=== PATIENT | female | born 1955 | race Caucasian/White ===

== ENCOUNTER 2021-06-19 23:37 | Inpatient (IN) | payer OTHER ==
[~2021-06-19] VITALS: Ht 167.6 cm; Wt 130.0 kg
[2021-06-20 01:08] LABS: BILIRUBIN 1+ mg/dL (NEGATIVE); BLOOD 2+ Ery/uL (NEGATIVE); COLOR YELLOW (YELLOW); GLUCOSE (U) NORMAL (NORMAL); LEUKOCYTES NEGATIVE Leu/uL (NEGATIVE); NITRITE NEGATIVE (NEGATIVE); PROTEIN 3+ mg/dL (NEGATIVE); SPECIFIC GRAVITY >=1.030 (1.001-1.030); UROBILINOGEN >=8.0 mg/dL (0.2-1.0)
[2021-06-20 01:25] LABS: CLARITY HAZY (CLEAR)
[2021-06-20 01:32] LABS: BACTERIA 1+; GRANULAR CASTS TRACE; RENAL EPITHELIAL CELLS RARE; SQUAMOUS EPITHELIAL CELLS RARE; URINARY WBC RARE
[2021-06-20 03:11] LABS: INR 1.21 (0.9-1.2); PROTHROMBIN TIME 14.7 SECONDS (11.8-13.4)
[2021-06-20 03:26] LABS: LACTIC ACID 1.1 mmol/L (0.4-1.9)
[2021-06-20 03:29] LABS: ALBUMIN 2.3 g/dL (3.4-5.0); BILIRUBIN - TOTAL 0.7 mg/dL (0.2-1.0); BUN/CREAT RATIO (CALC) 31.6 RATIO; CREATININE 0.95 mg/dL (0.51-0.95); GLOBULIN (CALCULATION) 3.5 g/dL; MAGNESIUM 2.3 mg/dL (1.8-2.4); POTASSIUM 4.4 mmol/L (3.5-5.1); TOTAL PROTEIN 5.8 g/dL (6.4-8.2)
[2021-06-20 03:34] LABS: BASOPHIL 0.2 % (0-2); EOSINOPHIL 0 % (0-7); HCT 38.5 % (37.0-47.0); LYMPHOCYTE 3.2 % (15-48); MCH 29.1 pg (25.0-31.0); MCHC 31.2 g/dL (32.0-36.0); MCV 93.2 fL (78.0-100.0); MONOCYTE 5.4 % (0-12); MPV 9.8 fL (6.0-9.5); NEUTROPHIL 89.2 % (41-80); NRBC 0; PLT 160 K/uL (150-400); RBC 4.13 M/uL (4.20-5.40); RDW 14.8 % (11.5-14.0); WBC 9.3 K/uL (4.0-10.5)
[2021-06-20] MEDS ORDERED: TRELEGY ELLIPT1 EAC1 INH (12:51)
[2021-06-20] MEDS ORDERED: XANAX0.5 MG PO (12:52)
[2021-06-20] MEDS ORDERED: HYDROCODON-ACE1 EAC6 PO (12:53)
[2021-06-20] MEDS ORDERED: LIPITOR40 MG PO (12:53)
[2021-06-20] MEDS ORDERED: ZOLOFT100 MG PO (12:54)
[2021-06-20] MEDS ORDERED: BUMEX1 MG PO (12:54)
[2021-06-20] MEDS ORDERED: DUONEB 2.5-0.5M1 AMP INH (12:54)
[2021-06-20] MEDS ORDERED: VITAMIN D21250 MCG PO (12:55)
[2021-06-20] MEDS ORDERED: K-DUR20 MEQ PO (12:55)
[2021-06-20] MEDS ORDERED: FENOFIBRATE134 MG PO (12:57)
[2021-06-20 17:52] LABS: BASOPHIL 0.2 % (0-2); EOSINOPHIL 0 % (0-7); HCT 36.7 % (37.0-47.0); HGB 11.6 g/dl (12.5-16.0); LYMPHOCYTE 8.5 % (15-48); MCH 29.2 pg (25.0-31.0); MCHC 31.6 g/dL (32.0-36.0); MCV 92.4 fL (78.0-100.0); MONOCYTE 6.8 % (0-12); MPV 9.7 fL (6.0-9.5); NEUTROPHIL 83.6 % (41-80); NRBC 0; PLT 153 K/uL (150-400); RBC 3.97 M/uL (4.20-5.40); RDW 14.4 % (11.5-14.0); WBC 6.5 K/uL (4.0-10.5)
[2021-06-20 17:58] LABS: INR 1.21 (0.9-1.2); PROTHROMBIN TIME 14.7 SECONDS (11.8-13.4); PTT 32.1 SECONDS (24.4-34.7)
[2021-06-20 18:34] LABS: ALBUMIN 2.1 g/dL (3.4-5.0); BILIRUBIN - TOTAL 0.4 mg/dL (0.2-1.0); BUN/CREAT RATIO (CALC) 32.7 RATIO; CREATININE 0.98 mg/dL (0.51-0.95); GLOBULIN (CALCULATION) 3.4 g/dL; PHOSPHORUS 2.4 mg/dL (2.6-4.7); POTASSIUM 4.2 mmol/L (3.5-5.1); TOTAL PROTEIN 5.5 g/dL (6.4-8.2)
[2021-06-21 04:00] LABS: BASOPHIL 0.3 % (0-2); EOSINOPHIL 0.1 % (0-7); HCT 37.6 % (37.0-47.0); HGB 11.7 g/dl (12.5-16.0); MCHC 31.1 g/dL (32.0-36.0); MCV 93.3 fL (78.0-100.0); MONOCYTE 5.7 % (0-12); MPV 9.4 fL (6.0-9.5); NEUTROPHIL 87.1 % (41-80); PLT 156 K/uL (150-400); RBC 4.03 M/uL (4.20-5.40); RDW 14.4 % (11.5-14.0); WBC 7.7 K/uL (4.0-10.5)
[2021-06-21 04:21] LABS: BAND 2 % (0-10); LYMPHOCYTE(M) 9 % (15-48); METAMYELOCYTE 1; MONOCYTE(M) 5 % (0-12); NEUTROPHILS(M) 83 % (41-80); TOTAL CELL COUNT 100
[2021-06-21 04:22] LABS: NRBC 0; PLATELET ESTIMATE NORMAL; PLATELET MORPHOLOGY NORMAL; POLYCHROMASIA SLIGHT; PRO-BNP 432 pg/mL (<125)
[2021-06-21 04:42] LABS: ALBUMIN 2.1 g/dL (3.4-5.0); BILIRUBIN - TOTAL 0.6 mg/dL (0.2-1.0); BUN/CREAT RATIO (CALC) 29.4 RATIO; CREATININE 1.02 mg/dL (0.51-0.95); GLOBULIN (CALCULATION) 3.4 g/dL; MAGNESIUM 2.1 mg/dL (1.8-2.4); PHOSPHORUS 2.1 mg/dL (2.6-4.7); POTASSIUM 4.2 mmol/L (3.5-5.1); TOTAL PROTEIN 5.5 g/dL (6.4-8.2)
--- NOTE | 2021-06-21 15:16 | NUR ---
06/21/21 Patient is currently intubated. She has home 02. Will monitor for discharge planning needs.
[2021-06-22 05:31] LABS: ALBUMIN 1.9 g/dL (3.4-5.0); BILIRUBIN - TOTAL 0.5 mg/dL (0.2-1.0); BUN/CREAT RATIO (CALC) 33.7 RATIO; CREATININE 0.98 mg/dL (0.51-0.95); GLOBULIN (CALCULATION) 3.2 g/dL; MAGNESIUM 2.2 mg/dL (1.8-2.4); PHOSPHORUS 4.3 mg/dL (2.6-4.7); POTASSIUM 4.5 mmol/L (3.5-5.1); TOTAL PROTEIN 5.1 g/dL (6.4-8.2)
[2021-06-22 05:32] LABS: BASOPHIL 0.2 % (0-2); EOSINOPHIL 0.2 % (0-7); HCT 35.9 % (37.0-47.0); LYMPHOCYTE 11.6 % (15-48); MCHC 30.6 g/dL (32.0-36.0); MCV 94.7 fL (78.0-100.0); MONOCYTE 4.1 % (0-12); MPV 10.1 fL (6.0-9.5); NEUTROPHIL 82.1 % (41-80); NRBC 0.3; PLT 183 K/uL (150-400); RBC 3.79 M/uL (4.20-5.40); RDW 14.1 % (11.5-14.0)
[2021-06-23 03:52] LABS: BASOPHIL 0.4 % (0-2); EOSINOPHIL 0.1 % (0-7); HCT 40.3 % (37.0-47.0); HGB 12.1 g/dl (12.5-16.0); MCH 28.8 pg (25.0-31.0); MONOCYTE 5.3 % (0-12); MPV 9.6 fL (6.0-9.5); NEUTROPHIL 80.2 % (41-80); NRBC 0; PLT 219 K/uL (150-400); RDW 14.3 % (11.5-14.0); WBC 8.1 K/uL (4.0-10.5)
[2021-06-23 04:20] LABS: ALBUMIN 2.2 g/dL (3.4-5.0); BILIRUBIN - TOTAL 0.3 mg/dL (0.2-1.0); CREATININE 0.94 mg/dL (0.51-0.95); GLOBULIN (CALCULATION) 2.9 g/dL; MAGNESIUM 2.3 mg/dL (1.8-2.4); PHOSPHORUS 4.1 mg/dL (2.6-4.7); POTASSIUM 4.3 mmol/L (3.5-5.1); TOTAL PROTEIN 5.1 g/dL (6.4-8.2)
--- NOTE | 2021-06-23 06:17 | NUR ---
0600 PT RECEIVED BATH AND REPOSITIONING. PT IS AWAKE AND ALERT AT THIS TIME. PT TOLD RN SHE WANTED TO TURN SLIGHTLY TO HER LEFT. RN HELPED PT. PT SUDDENLY TRIED TO SIT UP AND WAS MOTIONING TOWARD HER ET TUBE. PT SUDDENLY STARTED TRYING TO GRAB A HOLD OF IT AND PULL IT OUT. RN WAS ABLE TO PREVENT THIS FROM HAPPENING. RT CAME IN ROOM TO ASSIST AND SENIOR NET DEVELOPER ARCHITECT WAS AT BS AND ORDERED A PUSH OF 5 MG VERSED. WE WERE ABLE TO SEDATE PT ENOUGHT TO PUT IN RESTRAINTS AND INTERVENE WITH HER RESPIRATORY DISTRESS. ER,RN
--- NOTE | 2021-06-23 06:36 | NUR ---
PATIENT BECAME EXTREMELY AGITATED ON VENT, RN WAS AT BEDSIDE. PATIENT UNRESTRAINED TRYING TO PULL OUT ET TUBE. RT/RN TRYING TO CALM PATIENT SIMON CANDELARIO APRN CALLED. PATIENT BITING ON TUBE, NOT VENTILATING. PATIENT COUGHING UP THICK BOWDEN/BROWN SPUTUM. PATIENT WAS GIVEN SEDATION. PATIENT WAS TAKEN OFF VENT AND BAGGED, SMALL BOWDEN PLUG SUCTIONED. PAIENT CALMED DOWN. TUBE STILL IN APPARENT GOOD POSITION. AM ABG THAT WAS ORDERED OBTAINED WHEN PATIENT WAS SEDATED AND RELAXED. RESULTS SHOWN TO SIMON CANDELARIO APRN
--- NOTE | 2021-06-23 11:05 | NUR ---
2977 KARL MIN, PT GRAND-DAUGHTER GIVEN UPDATE ON PT CONDITION
--- NOTE | 2021-06-23 11:06 | NUR ---
899 HERNANDEZ PT DAUGHTER CALLED GIVEN UPDATE ON PT CONDITION [id number] HERNANDEZ CALLED TO SPEAK WITH PT. PHONE PLACE TO PT EAR. REFUSED ZOOM CALL AT THIS TIME
[2021-06-24 03:37] LABS: BASOPHIL 0.3 % (0-2); EOSINOPHIL 0 % (0-7); HCT 38.8 % (37.0-47.0); HGB 11.6 g/dl (12.5-16.0); LYMPHOCYTE 9.4 % (15-48); MCH 28.6 pg (25.0-31.0); MCHC 29.9 g/dL (32.0-36.0); MCV 95.8 fL (78.0-100.0); MONOCYTE 3.9 % (0-12); MPV 9.9 fL (6.0-9.5); NEUTROPHIL 83.5 % (41-80); NRBC 0; PLT 210 K/uL (150-400); RBC 4.05 M/uL (4.20-5.40); RDW 14.3 % (11.5-14.0); WBC 7.9 K/uL (4.0-10.5)
[2021-06-24 03:56] LABS: BILIRUBIN - TOTAL 0.4 mg/dL (0.2-1.0); BUN/CREAT RATIO (CALC) 34.4 RATIO; CREATININE 0.9 mg/dL (0.51-0.95); GLOBULIN (CALCULATION) 3.3 g/dL; POTASSIUM 4.7 mmol/L (3.5-5.1); TOTAL PROTEIN 5.3 g/dL (6.4-8.2)
--- NOTE | 2021-06-24 14:15 | NUR ---
PATIENT PLACED ON CPAP TRIAL, DIPRIVAN OFF FENTANYL TURNED DOWN TO 75 MCG. PATIENT EXTUBATED TO VENTI MASK ENDED UP ON 50% CHANGED TO OXIFLOW AT 10 LITERS THEN TO 100% NON REBREATHER. SUCTIONED OUT AND COUGHED UP LARGE AMOUNT OF SECRETIONS WILL CONTINUE TO MONITOR
[2021-06-25 03:48] LABS: BASOPHIL 0.2 % (0-2); EOSINOPHIL 0 % (0-7); HCT 39.7 % (37.0-47.0); HGB 12.2 g/dl (12.5-16.0); LYMPHOCYTE 6.7 % (15-48); MCH 29.2 pg (25.0-31.0); MCHC 30.7 g/dL (32.0-36.0); MONOCYTE 4.4 % (0-12); MPV 9.8 fL (6.0-9.5); NEUTROPHIL 84.8 % (41-80); NRBC 0; PLT 232 K/uL (150-400); RBC 4.18 M/uL (4.20-5.40); RDW 14.3 % (11.5-14.0); WBC 10.6 K/uL (4.0-10.5)
[2021-06-25 04:02] LABS: ALBUMIN 2.2 g/dL (3.4-5.0); BILIRUBIN - TOTAL 0.4 mg/dL (0.2-1.0); BUN/CREAT RATIO (CALC) 35.1 RATIO; CREATININE 0.77 mg/dL (0.51-0.95); GLOBULIN (CALCULATION) 3.3 g/dL; MAGNESIUM 2.2 mg/dL (1.8-2.4); PHOSPHORUS 3.8 mg/dL (2.6-4.7); POTASSIUM 4.7 mmol/L (3.5-5.1); TOTAL PROTEIN 5.5 g/dL (6.4-8.2)
[2021-06-26 04:00] LABS: BASOPHIL 0.2 % (0-2); EOSINOPHIL 0.1 % (0-7); HCT 40.7 % (37.0-47.0); HGB 12.8 g/dl (12.5-16.0); LYMPHOCYTE 6.7 % (15-48); MCH 29.4 pg (25.0-31.0); MCHC 31.4 g/dL (32.0-36.0); MCV 93.3 fL (78.0-100.0); MONOCYTE 3.8 % (0-12); MPV 9.8 fL (6.0-9.5); NEUTROPHIL 85.1 % (41-80); NRBC 0; PLT 232 K/uL (150-400); RBC 4.36 M/uL (4.20-5.40); RDW 14.8 % (11.5-14.0); WBC 8.7 K/uL (4.0-10.5)
[2021-06-26 04:15] LABS: BUN/CREAT RATIO (CALC) 34.8 RATIO; CREATININE 0.66 mg/dL (0.51-0.95); MAGNESIUM 2.3 mg/dL (1.8-2.4); PHOSPHORUS 3.9 mg/dL (2.6-4.7); POTASSIUM 4.9 mmol/L (3.5-5.1)
--- NOTE | 2021-06-26 20:27 | NUR ---
PATIENT HAS A BED AT [facility]. CALLED REPORT TO NEGRA BLEVINS AT 1920
== END 2021-06-27 00:10 | disposition other institution (70) | DRG 870 ==
LOC: FER 23:37 → FTCU 06-20 14:12
PROVIDERS: Emergency Medicine; ADMIT Internal Medicine
PROC: 8E0ZXY6 Isolation (ICD-10-PCS; principal; 2021-06-20)
PROC: 5A1955Z Respiratory Ventilation, Greater than 96 Consecutive Hours (ICD-10-PCS; 2021-06-20)
PROC: XW033E5 Introduction of Remdesivir Anti-infective into Peripheral Vein, Percutaneous Approach, New Technology Group 5 (ICD-10-PCS; 2021-06-20)
PROC: 0BH17EZ Insertion of Endotracheal Airway into Trachea, Via Natural or Artificial Opening (ICD-10-PCS; 2021-06-20)
PROC: 5A09457 Assistance with Respiratory Ventilation, 24-96 Consecutive Hours, Continuous Positive Airway Pressure (ICD-10-PCS; 2021-06-24)
DX: A41.9 Sepsis, unspecified organism (principal); J96.21 Acute and chronic respiratory failure with hypoxia; J96.22 Acute and chronic respiratory failure with hypercapnia; U07.1 COVID-19; J12.82 Pneumonia due to coronavirus disease 2019; J15.9 Unspecified bacterial pneumonia; J44.0 Chronic obstructive pulmonary disease with (acute) lower respiratory infection; R65.20 Severe sepsis without septic shock; T17.990A Other foreign object in respiratory tract, part unspecified in causing asphyxiation, initial encounter; G89.29 Other chronic pain; I10 Essential (primary) hypertension; E78.5 Hyperlipidemia, unspecified; Z96.643 Presence of artificial hip joint, bilateral; Z99.81 Dependence on supplemental oxygen; Z79.899 Other long term (current) drug therapy; Z90.49 Acquired absence of other specified parts of digestive tract; Z90.710 Acquired absence of both cervix and uterus; Z98.890 Other specified postprocedural states
CPT/HCPCS: 36415; 36600; 71045; 71250; 74018; 80048; 80053; 80202; 81001; 82607; 82803; 82962; 83540; 83550; 83605; 83615; 83735; 83880; 84100; 84145; 84484; 85025; 85610; 85730; 86140; 87040; 87070; 87077; 87186; 87205; 93005; 94002; 94640; 94660; C1751; C9113; C9399; J1100; J1650; J2185; J2250; J2405; J2704; J2916; J3010; J3360; J3370; J7030; J7040; J7050; U0002